=== PATIENT | male | born 1980 | race Caucasian/White ===

== ENCOUNTER 2017-08-21 22:58 | Emergency (ER) | payer OTHER ==
[~2017-08-21] VITALS: Ht 188 cm; Wt 85.0 kg
[2017-08-21 23:05] VITALS: BP 134/93; PULSE 124; RESP 20; TEMP 99.9; O2SAT 97
[2017-08-21] MEDS ORDERED: LORazepam 2 MG/ML VIAL IV PUSH ONE ×2 (23:30)
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
[2017-08-22 04:55] LABS: AUTOMATED NEUTROPHIL # 10.1 TH/MM3 (1.8-7.7); BASOPHIL # 0.1 TH/MM3 (0-0.2); BASOPHIL % 0.6 % (0.0-2.0); EOSINOPHIL # 0.1 TH/MM3 (0-0.4); EOSINOPHIL % 0.4 % (0.0-4.0); HEMOGLOBIN 13.6 GM/DL (13.0-17.0); LYMPH % 31.2 % (9.0-44.0); LYMPHOCYTE # 5.3 TH/MM3 (1.0-4.8); MEAN CELL VOLUME 88.1 FL (80.0-100.0); MEAN PLATELET VOLUME 7.5 FL (7.0-11.0); MONO % 8.7 % (0.0-8.0); MONOCYTE # 1.5 TH/MM3 (0-0.9); NEUT % 59.1 % (16.0-70.0); PLATELET COUNT 334 TH/MM3 (150-450); RED BLOOD COUNT 4.54 MIL/MM3 (4.50-5.90); RED CELL DISTRIBUTION WIDTH 12.9 % (11.6-17.2); WHITE BLOOD COUNT 17.1 TH/MM3 (4.0-11.0)
[2017-08-22 05:11] LABS: ALBUMIN 4.5 GM/DL (3.4-5.0); ALKALINE PHOSPHATASE 102 U/L (45-117); ALT (GPT) 22 U/L (12-78); AST (GOT) 43 U/L (15-37); BICARBONATE 27.3 MEQ/L (21.0-32.0); BLOOD UREA NITROGEN 12 MG/DL (7-18); CALCIUM 9.5 MG/DL (8.5-10.1); CHLORIDE 102 MEQ/L (98-107); CREATININE 1.13 MG/DL (0.60-1.30); GLOMERULAR FILTRATION RATE 74 ML/MIN (>89); SODIUM (NA) 139 MEQ/L (136-145); TOTAL BILIRUBIN ADULT 0.7 MG/DL (0.2-1.0)
[2017-08-22 05:12] LABS: GLUCOSE,RANDOM 43 MG/DL (74-106)
[2017-08-22 05:53] VITALS: BP 119/60; PULSE 68; RESP 17; TEMP 98.3; O2SAT 99
[2017-08-22 06:01] LABS: BANDS 2 % (0-6); LYMPHOCYTES 25 % (9-44); MONOCYTES 10 % (0-8); NEUTROPHIL # MANUAL DIFF 11.1 TH/MM3 (1.8-7.7); POLYS (SEG NEUTROPHILS) 63 % (16-70)
[2017-08-22 09:51] VITALS: BP 134/76; PULSE 82; RESP 20; TEMP 97.9; O2SAT 96
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
--- NOTE | 2017-08-22 14:56 | PD ---
Physical Exam Date Seen by Provider: Aug 22, 2017 Time Seen by Provider: 14:55 Narrative 36-year-old male previously medically cleared for psychiatric evaluation has been seen by psychiatric staff and deemed psychiatrically stable for discharge at this time. He is medically stable at this time. Follow-up with psychiatric plan. Data Data Last Documented VS Vital Signs Date Time Temp Pulse Resp B/P (MAP) Pulse Ox O2 Delivery O2 Flow Rate FiO2 08/22/17 09:51 97.9 82 20 134/76 (95) 96 Room Air Orders Orders Lorazepam Inj (Ativan Inj) (08/21/17 23:30) Lorazepam Inj (Ativan Inj) (08/21/17 23:30) Creatine Kinase (Cpk) (08/22/17 04:33) Complete Blood Count With Diff (08/22/17 04:33) Comprehensive Metabolic Panel (08/22/17 04:33) CKMB (08/22/17 03:20) CKMB% (08/22/17 03:20) Psych Screen (08/22/17 05:47) Drug Screen, Random Urine (08/22/17 06:42) Diet Regular Basic (08/22/17 Lunch) Labs Laboratory Tests Test 08/22/17 03:20 08/22/17 06:40 White Blood Count 17.1 TH/MM3 Red Blood Count 4.54 MIL/MM3 Hemoglobin 13.6 GM/DL Hematocrit 40.0 % Mean Corpuscular Volume 88.1 FL Mean Corpuscular Hemoglobin 30.0 PG Mean Corpuscular Hemoglobin Concent 34.0 % Red Cell Distribution Width 12.9 % Platelet Count 334 TH/MM3 Mean Platelet Volume 7.5 FL Neutrophils (%) (Auto) 59.1 % Lymphocytes (%) (Auto) 31.2 % Monocytes (%) (Auto) 8.7 % Eosinophils (%) (Auto) 0.4 % Basophils (%) (Auto) 0.6 % Neutrophils # (Auto) 10.1 TH/MM3 Lymphocytes # (Auto) 5.3 TH/MM3 Monocytes # (Auto) 1.5 TH/MM3 Eosinophils # (Auto) 0.1 TH/MM3 Basophils # (Auto) 0.1 TH/MM3 CBC Comment AUTO DIFF Differential Total Cells Counted 100 Neutrophils % (Manual) 63 % Band Neutrophils % 2 % Lymphocytes % 25 % Monocytes % 10 % Neutrophils # (Manual) 11.1 TH/MM3 Differential Comment FINAL DIFF MANUAL Platelet Estimate NORMAL Platelet Morphology Comment NORMAL Red Cell Morphology Comment NORMAL Blood Urea Nitrogen 12 MG/DL Creatinine 1.13 MG/DL Random Glucose 43 MG/DL Total Protein 9.0 GM/DL Albumin 4.5 GM/DL Calcium Level 9.5 MG/DL Alkaline Phosphatase 102 U/L Aspartate Amino Transf (AST/SGOT) 43 U/L Alanine Aminotransferase (ALT/SGPT) 22 U/L Total Bilirubin 0.7 MG/DL Sodium Level 139 MEQ/L Potassium Level 3.3 MEQ/L Chloride Level 102 MEQ/L Carbon Dioxide Level 27.3 MEQ/L Anion Gap 10 MEQ/L Estimat Glomerular Filtration Rate 74 ML/MIN Total Creatine Kinase 701 U/L Creatine Kinase MB 11.4 NG/ML Creatine Kinase MB % 1.6 % Urine Opiates Screen POS Urine Barbiturates Screen NEG Urine Amphetamines Screen POS Urine Benzodiazepines Screen NEG Urine Cocaine Screen POS Urine Cannabinoids Screen NEG MDM Medical Record Reviewed: Yes Supervised Visit with YIFAN: Yes Differential Diagnosis 36-year-old male previously medically cleared for psychiatric evaluation has been seen by psychiatric staff and deemed psychiatrically stable for discharge at this time. He is medically stable at this time. Follow-up with psychiatric plan. Diagnosis Primary Impression: Substance abuse Additional Instruction: 36-year-old male previously medically cleared for psychiatric evaluation has been seen by psychiatric staff and deemed psychiatrically stable for discharge at this time. He is medically stable at this time. Follow-up with psychiatric plan. Scripts No Active Prescriptions or Reported Meds Disposition: 01 DISCHARGE HOME Condition: Stable Jorge Peres Aug 22, 2017 14:56
== END 2017-08-22 15:32 | disposition home or self-care (01) ==
LOC: NEPC 22:58 → NEPJ 08-22 15:32
DX: F19.980 Other psychoactive substance use, unspecified with psychoactive substance-induced anxiety disorder (principal); F11.10 Opioid abuse, uncomplicated; Z72.0 Tobacco use
CPT/HCPCS: 80053; 80307; 82550; 82552; 85007; 85027; 96374; 99284; J2060